=== PATIENT | male | born 1970 ===

== ENCOUNTER 2018-07-01 03:18 | Outpatient (CLI) | payer BC | END 2018-07-01 23:59 | disposition home or self-care (01) | LOC: DIABETIC 03:18 | PROVIDERS: ATTEND Surgery | DX: E66.01 Morbid (severe) obesity due to excess calories (principal) | CPT/HCPCS: 97802 ==

== ENCOUNTER 2018-07-24 01:47 | Outpatient (CLI) | payer BC | END 2018-07-24 23:59 | disposition home or self-care (01) | LOC: DIABETIC 01:47 | PROVIDERS: ATTEND Surgery | DX: Z71.3 Dietary counseling and surveillance (principal); E66.01 Morbid (severe) obesity due to excess calories; Z68.41 Body mass index [BMI] 40.0-44.9, adult | CPT/HCPCS: 97802 ==

== ENCOUNTER 2018-08-12 03:09 | Outpatient (CLI) | payer BC | END 2018-08-12 23:59 | disposition home or self-care (01) | LOC: DIABETIC 03:09 | PROVIDERS: ATTEND Surgery | DX: E66.01 Morbid (severe) obesity due to excess calories (principal) | CPT/HCPCS: 97802 ==

== ENCOUNTER 2018-09-11 00:39 | Outpatient (CLI) | payer BC | END 2018-09-11 23:59 | disposition home or self-care (01) | LOC: DIABETIC 00:39 | PROVIDERS: ATTEND Surgery | DX: E66.01 Morbid (severe) obesity due to excess calories (principal) | CPT/HCPCS: G0108 ==

== ENCOUNTER 2018-10-16 00:35 | Outpatient (CLI) | payer BC | END 2018-10-16 23:59 | disposition home or self-care (01) | LOC: DIABETIC 00:35 | PROVIDERS: ATTEND Surgery | DX: E66.01 Morbid (severe) obesity due to excess calories (principal) | CPT/HCPCS: 97802 ==

== ENCOUNTER 2018-11-18 01:23 | Outpatient (CLI) | payer BC | END 2018-11-18 23:59 | disposition home or self-care (01) | LOC: DIABETIC 01:23 | PROVIDERS: ATTEND Surgery | DX: E66.01 Morbid (severe) obesity due to excess calories (principal) | CPT/HCPCS: 97802 ==